=== PATIENT | female | born 1975 | race Caucasian/White ===

== ENCOUNTER 2016-06-22 11:18 | Emergency (ER) | payer SELFPAY | END 2016-06-22 16:16 | disposition home or self-care (01) | LOC: ER 11:18 | DX: R10.11 Right upper quadrant pain (principal); R10.9 Unspecified abdominal pain; R07.9 Chest pain, unspecified; R11.0 Nausea; F32.9 Major depressive disorder, single episode, unspecified; F41.9 Anxiety disorder, unspecified; I10 Essential (primary) hypertension; F17.210 Nicotine dependence, cigarettes, uncomplicated; Z90.711 Acquired absence of uterus with remaining cervical stump; Z98.51 Tubal ligation status; Z79.899 Other long term (current) drug therapy; Z88.1 Allergy status to other antibiotic agents | CPT/HCPCS: 36415; 96361; 96374; 96376 ==